=== PATIENT | male | born 1950 | race Caucasian/White ===

== ENCOUNTER → 2017-05-20 | Outpatient (CLI) | payer OTHER, BC ==
[~2017-05-20] MED LIST: OPTIRAY 320 IV PRN; PATIENT'S ALLERGY INFO NEEDS ENTERED SCH
--- NOTE | 2017-05-20 10:00 | DIAGNOSTIC IMAGING REPORT ---
CT SCAN OF THE BRAIN WITHOUT IV CONTRAST CLINICAL HISTORY: Memory loss. Headache. COMPARISON STUDY: No priors. TECHNIQUE: Axial CT scan of the brain is performed from the vertex to the skull base before and following the IV administration of 94 cc of Optiray 320. IV contrast was administered without complication. CT DOSE: 1577.26 mGycm FINDINGS: Brain parenchyma: There are age-related involutional changes noting mild subcortical and periventricular microangiopathic change. There is no hemorrhage, mass effect, or evidence of acute territorial ischemia by CT criteria. No enhancing mass lesion is seen on the postcontrast images. Carey-white matter is preserved. No extra-axial fluid collection is seen. Ventricles, sulci, cisterns: Prominent secondary to involutional change. Intracranial vasculature: There is atherosclerotic calcification of the cavernous carotid arteries. Calvarium: Unremarkable. Sinuses and mastoids: A 1.1 cm retention cyst is noted in the right maxillary antrum. The remaining visualized paranasal sinuses are clear. The mastoid air cells are well pneumatized. Orbits: The bony orbits are grossly intact. IMPRESSION: There is no hemorrhage, enhancing mass, or evidence of acute territorial ischemia by CT criteria. Electronically signed by: Philip Bean M.D. 05/20/2017 9:59 AM Dictated Date/Time: 05/20/2017 9:56 AM
== END | disposition home or self-care (01) ==
LOC: C.CTS 09:35
PROVIDERS: ATTEND Psychiatry & Neurology Neurology
DX: R41.3 Other amnesia (principal); R51 Headache

== ENCOUNTER 2017-09-14 09:16 | Day surgery (SDC) | payer OTHER, BC ==
[2017-08-24 08:34] VITALS: Ht 167.6 cm; Wt 89.9 kg
--- NOTE | 2017-08-24 09:09 | PAT Medication Instructions ---
Service Date Aug 24, 2017. Current Home Medication List Aspirin (Aspirin Ec), 81 MG PO QPM Carvedilol (Coreg), 12.5 MG PO BID Cholecalciferol (Vitamin D3), 1 TAB PO QPM Donepezil Hydrochloride (Aricept), 10 MG PO QAM Eplerenone (Eplerenone), 12.5 MG PO QAM Escitalopram (Lexapro), 10 MG PO QPM Ferrous Sulfate (Iron), 325 MG PO QPM Hydrochlorothiazide (Hctz), 25 MG PO QAM Memantine (Namenda), 10 MG PO BID Multivitamin (Multivitamin), 1 TAB PO QAM Omeprazole (Prilosec), 20 MG PO QPM Ramipril (Ramipril), 1 CAP PO QPM Medication Instructions For Your Scheduled Surgery - Check with surgeon and barrel loader for instructions: Aspirin (Aspirin Ec), 81 MG PO QPM - Hold the following medications 24 hours prior to surgery: Ramipril (Ramipril), 1 CAP PO QPM - Hold the following medications the morning of surgery: Eplerenone (Eplerenone), 12.5 MG PO QAM Hydrochlorothiazide (Hctz), 25 MG PO QAM Multivitamin (Multivitamin), 1 TAB PO QAM - Take the following medications the morning of surgery with a sip of water: Memantine (Namenda), 10 MG PO BID Donepezil Hydrochloride (Aricept), 10 MG PO QAM Carvedilol (Coreg), 12.5 MG PO BID - Take the following medications as scheduled the night before surgery: Omeprazole (Prilosec), 20 MG PO QPM Memantine (Namenda), 10 MG PO BID Escitalopram (Lexapro), 10 MG PO QPM Ferrous Sulfate (Iron), 325 MG PO QPM Cholecalciferol (Vitamin D3), 1 TAB PO QPM Carvedilol (Coreg), 12.5 MG PO BID If you have any questions please call us at [phone] or [phone] or [phone]
--- NOTE | 2017-08-24 09:48 | DIAGNOSTIC IMAGING REPORT ---
TWO VIEW CHEST CLINICAL HISTORY: Preoperative examination. FINDINGS: PA and lateral chest radiographs are obtained. No prior studies are available for comparison at the time of dictation. A single lead cardiac AICD partially obscures the left upper chest. The heart is mildly enlarged and there is atherosclerotic calcification of the thoracic aorta. The pulmonary vasculature is noncongested. Nonspecific interstitial thickening is identified. No airspace consolidation or pleural effusion is seen. There is no pneumothorax. The bony thorax appears intact. IMPRESSION: 1. Cardiomegaly and AICD. There is no radiographic evidence of congestive failure. 2. No airspace consolidation or pleural effusion is identified. Electronically signed by: Philip Bean M.D. 08/24/2017 9:47 AM Dictated Date/Time: 08/24/2017 9:46 AM
[2017-08-24 10:06] LABS: BASO % 0.7 %; BASO ABS # 0.04 K/uL (0-0.2); EOS % 3.3 %; EOS ABS # 0.18 K/uL (0-0.5); HEMATOCRIT 44.9 % (42-52); HEMOGLOBIN 15.8 g/dL (14.0-18.0); IG# 0.01 K/uL (0.00-0.02); LYMPH % 29.3 %; LYMPH ABS # 1.61 K/uL (1.2-3.4); MEAN CORPUSCULAR HEMOGLOBIN 32.4 pg (25-34); MEAN CORPUSCULAR HGB CONC 35.2 g/dl (32-36); MEAN PLATELET VOLUME 9.4 fL (7.4-10.4); MONO ABS # 0.55 K/uL (0.11-0.59); NEUT % 56.5 %; NEUT ABS # 3.11 K/uL (1.4-6.5); PLATELET COUNT 187 K/uL (130-400); RED CELL DISTRIBUTION WIDTH CV 13.6 % (11.5-14.5); RED CELL DISTRIBUTION WIDTH SD 45.7 fL (36.4-46.3)
[2017-08-24 10:24] LABS: PTT PATIENT 27.5 SECONDS (21.0-31.0)
[2017-08-24 11:37] LABS: CALCIUM 9.4 mg/dl (8.5-10.1); CREATININE 1.16 mg/dl (0.60-1.40)
--- NOTE | 2017-09-13 17:16 | HISTORY & PHYSICAL EXAMINATION ---
DATE OF ADMISSION: 09/14/2017 CHIEF COMPLAINT: Medium sized left rotator cuff tear. HISTORY OF PRESENT ILLNESS: Victor Manuel is a pleasant 67-year-old male who has been dealing with chronic left shoulder pain. He has a defibrillator, so went to the [facility] for special MRI. The MRI showed a medium sized rotator cuff tear. After failing extensive conservative treatment including multiple injections, he has elected to proceed with a left arthroscopic rotator cuff repair. PAST MEDICAL HISTORY: Significant for CHF with a defibrillator. MEDICATIONS: Include aspirin 81 mg daily, carvedilol 12.5 mg twice a day, hydrochlorothiazide, ramipril 5 mg daily, omeprazole 20 mg daily, benazepril 10 mg daily, iron 325 mg daily, and vitamin D. PAST SURGICAL HISTORY: Denies. ALLERGIES: STATINS. SOCIAL HISTORY: He has about 1 drink per day. Denies any tobacco or drug use. He likes to remain active. REVIEW OF SYSTEMS: He complains mostly of left shoulder pain. All other pertinent review of systems negative. PHYSICAL EXAMINATION: GENERAL: He is awake, alert and orient x3. He is in no apparent distress. He is very pleasant. HEENT: Pupils equal, round, and reactive light. Extraocular movements were intact. Oral mucosa is pink and moist. HEART: Regular rate per radial pulse. LUNGS: Kristen symmetrically bilaterally with no audible breath sounds. ABDOMEN: Soft, nontender, and nondistended. MUSCULOSKELETAL: On physical examination of the left shoulder, he has full active range of motion. He has 4/5 motion with full can test and external rotation. Negative bear hug and belly press test. He has tenderness to palpation over subacromial space and mild biceps mary tenderness. No AC joint pain. IMAGING: MRI of the shoulder shows a full thickness medium sized rotator cuff tear of the supraspinatus. IMPRESSION: Medium sized left rotator cuff tear. PLAN: We will proceed with an arthroscopic decompression and arthroscopic rotator cuff repair. Postoperatively, he will be placed in a sling and placed on oral pain medications and discharged to home.
[~2017-09-14] VITALS: Ht 167.6 cm; Wt 89.9 kg
[~2017-09-14 09:16] MED LIST changes: +ACETAMINOPHEN 500 MG TAB PO SCH; +ASPI81TA28 PO; +ATROPINE SULFATE 0.1 MG/ML 5ML SYR IV PRN; +CARV12.52 PO; +CEFAZOLIN 2000MG IV PUSH 15 ML IV SCH; +CHOL1000 PO; +DONE10TA12 PO; +EPLE25TA3 PO; +ESCI10TA17 PO; +EpHEDrine SULFATE 50MG/5ML SYR ONE; +EpHEDrine SULFATE INJ 50 MG/ML AMP IV PRN; +FAMOTIDINE 20 MG TAB PO SCH; +FENTANYL CITRATE INJ 50 MCG/1 ML 2 ML VIAL IV PRN; +FENTANYL CITRATE INJ 50 MCG/1 ML 2 ML VIAL ONE; +FERR1TAB23 PO; +GABAPENTIN 300 MG CAP PO SCH; +HYDR25TA4 PO; +LACTATED RINGER'S 1000ML 1,000 ML IV SCH; +LACTATED RINGER'S 1000ML IV SCH; +LIDOCAINE HCL 2% 2 ML VIAL (20MG/ML) ONE; +MIDAZOLAM HCL 1 MG/ML 2ML VIAL ONE; +MULT-506 PO; +NMN10 PO; +ONDANSETRON INJ 2 MG/ML 2 ML VIAL IV PRN; +ONDANSETRON INJ 2 MG/ML 2 ML VIAL ONE; -OPTIRAY 320 IV PRN; -PATIENT'S ALLERGY INFO NEEDS ENTERED SCH; +PHENYLEPHRINE 100MCG/ML 5ML SYR ONE; +PRLSR20 PO; +PROPOFOL IV EMULSION 10 MG/ML 20 ML VIAL IV ONE; +RAMI5CAP PO; +ROPIVACAINE 0.5% 5 MG/ML 30 ML VIAL ONE
[2017-09-14 09:55] VITALS: BP 154/91; PULSE 61; TEMP 36.5; O2SAT 97
[2017-09-14] MEDS ORDERED: EpINEphrine HCL INJ 1 MG/ML 1ML SYRINGE ONE ×2 (11:42)
[2017-09-14] MEDS ORDERED: BUPIVACAINE/EPINEPHRINE 0.5% MPF 1:200,000 30 ML VIAL ONE (11:42)
--- NOTE | 2017-09-14 11:54 | History & Physical Bridge Note ---
H&P Re-Evaluation Bridge Note: I have examined the patient, reviewed the History & Physical and in the interval since the performance of the History & Physical I have noted the following changes of clinical significance: No changes noted
--- NOTE | 2017-09-14 14:12 | [facility] Post Operative Brief Note ---
Immediate Operative Summary Operative Date Sep 14, 2017. Pre-Operative Diagnosis Medium sized left rotator cuff tear Post-Operative Diagnosis SAME Procedure(s) Performed Left shoulder arthroscopy with rotator cuff repair and bicep tenodesis Surgeon Dr. Welch Driver Retraining Instructor Surgeon(s) Jose Antonio Pereira Pa-c Estimated Blood Loss 10ML Findings Consistent with Post-Op Diagnosis Specimens NONE Drains None Anesthesia Type General Regional Complication(s) none Disposition Disposition: Recovery Room / PACU
[2017-09-14] MEDS ORDERED: OXYC-57 PO (14:30)
[2017-09-14] MEDS ORDERED: KETO10TA PO (14:30)
--- NOTE | 2017-09-14 14:32 | Discharge Instructions ---
Discharge Instructions Date of Service Sep 14, 2017. Admission Reason for Admission: Left Shoulder Rotator Cuff Tear Discharge Discharge Diagnosis / Problem: SAME ABOVE Discharge Goals Goal(s): Decrease discomfort, Improve function Activity Recommendations Activity Limitations: as noted below Lifting Limitations: until after follow-up appointment Exercise/Sports Limitations: until after follow-up appointment Shower/Bathe: tomorrow . Instructions / Follow-Up Instructions / Follow-Up MEDICATIONS: * Resume previous medications unless instructed otherwise by your surgeon. * Always take pain medication on a full stomach or with food to avoid upset stomach. * Do not drink alcohol or drive while taking narcotics. * Ibuprofen or Tylenol may be taken if narcotic not needed. SPECIAL CARE INSTRUCTIONS: __ None _X_ Keep extremity elevated and iced x 48 hours; apply ice 20-30 minutes 8-10 times/day. May remove at night. __ Sling __24 hrs/day __ Remove at night _X_ Shoulder Immobilizer (MAY REMOVE AFTER 48 HOURS ONLY TO SHOWER AND FOR THERAPY) _X_ 24 hrs/day __ Remove at night _X_ Dressing __ Maintain until seen in office, may shower with plastic over site _X_ Remove dressings in 24-48 hours and then may shower _X_ Cover incisions with band-aids after showering _X_ Do not remove steri-strips Call physician if chills or temperature rises above 102 degrees or pain unrelieved by prescribed pain medications at . . Current Hospital Diet Patient's current hospital diet: Discharge Diet Recommended Diet: Regular Diet Procedures Procedures Performed: Left shoulder arthroscopy with rotator cuff repair and bicep tenodesis Pending Studies Studies pending at discharge: no Work Instructions Return To Work: after follow-up Lifting Limitations: NO LIFTING WITH LEFT ARM Medical Emergencies . Who to Call and When: Medical Emergencies: If at any time you feel your situation is an emergency, please call 911 immediately. . Non-Emergent Contact Non-Emergency issues call your: Primary Care Provider Call Non-Emergent contact if: you have a fever, temperature is above 101.5 . "Provider Documentation" section prepared by Eric Pereira. .
--- NOTE | 2017-09-14 14:35 | OPERATIVE REPORT ---
DATE OF OPERATION: 09/14/2017 PREOPERATIVE DIAGNOSIS: Medium sized left rotator cuff tear. POSTOPERATIVE DIAGNOSIS: Same. PROCEDURES: Left shoulder diagnostic arthroscopy with extensive debridement, acromioplasty, medium sized rotator cuff repair and open subpectoralis biceps tenodesis. SURGEON: Dr. Hank Odell. PROFESSOR OF MEDICINE: Jose Antonio Pereira PA-C, whose assistance was necessary for retraction, helping with arthroscopic instrumentation and closure. ANESTHESIA: General with a left interscalene nerve block. COMPLICATIONS: None. CONDITION: Stable to PACU. INDICATIONS: Victor Manuel is a pleasant 67-year-old male who presented to my office with a several year history of left shoulder pain. He does have a recent defibrillator placed. He had an MRI done at [place] because of a defibrillator and the MRI showed a medium size rotator cuff tear. After failing extensive conservative treatment, he elected to undergo arthroscopy. DESCRIPTION OF PROCEDURE: On 09/14/2017, he arrived at [facility] for the above procedure. He was seen in the preoperative holding and the operative extremity was identified and signed. He was given a preoperative antibiotic and a left interscalene nerve block. He was taken back to the operating room, laid on the table in the supine position and put under general anesthesia. He was then put into the beach chair position. The left shoulder was prepped and draped in sterile fashion. Time-out was done and the patient's operative extremity was properly identified. A scope was introduced into the posterior portal. Diagnostic arthroscopy showed no cartilage damage to the humeral head or the glenoid. There was some fraying of the anterior superior labrum. The biceps tendon was very frayed. There was a tear of the supraspinatus. The infraspinatus, teres minor and subscapularis were checked and intact. An anterior portal was not made because of the proximity of the defibrillator. The scope was then put in the subacromial space. A lateral portal was made. A shaver was used to do a complete subacromial and subdeltoid bursectomy. An ablator was used to tease the coracoacromial ligament off the undersurface of the acromion and a 5-0 joseph was used to complete an acromioplasty of a Bigliani type 3 acromion. A shaver was used to remove any excess debris and attention was turned to the rotator cuff. An additional anterolateral portal was made and Antoinette cannulas were placed in each of the lateral portals. It was a crescent shaped medium size rotator cuff tear. The greater tuberosity was prepared with a ring curette and a microfracture. A shaver was then used to do an intraarticular debridement. I was able to debride the labrum. I tenotomized the biceps tendon for later tenodesis and debrided the biceps stump back to stable margins. The rotator cuff was then fixed with an Arthrex SpeedBridge configuration using 4.75-mm BioComposite SwiveLock suture anchors and FiberTapes. This gave a nice knotless SpeedBridge repair. Multiple pictures were taken. The shoulder was brought through a full range of motion. The repair looked good. Arthroscopic instruments were removed from the shoulder. Attention was turned to an open biceps tenodesis. A small incision was made over the inferior border of the pectoralis major. Dissection was taken down through the fascia and the long head of the biceps tendon was delivered out the wound. The tendon was then whipstitched at the anticipated level of tenodesis. A 7.5-mm hole was drilled in the bicipital groove and the biceps tendon was tenodesed within 7 x 10 mm biointerference screw. This gave good fixation. The wound was then irrigated, closed with 3-0 Vicryl and running 3-0 Monocryl. Steri-strips were placed. Portal sites were closed with 3-0 nylon. He was then placed in a soft dressing and an abduction arm sling. He was then extubated, transferred [facility] and taken to the postanesthesia care unit in stable condition. He tolerated the procedure well. I attest to the content of the Intraoperative Record and any orders documented therein. Any exception s are noted below.
[2017-09-14] MEDS ORDERED: SODIUM CHLORIDE 0.9% 1000ML 1,000 ML IV SCH (14:43)
[2017-09-14] MEDS ORDERED: OXYCODONE/ACETAMINOPHEN 5-325 TAB PO PRN ×2 (14:45)
[2017-09-14] MEDS ORDERED: ONDANSETRON INJ 2 MG/ML 2 ML VIAL IV PRN (14:45)
--- NOTE | 2017-09-14 14:59 | Anesthesiology Progress Note ---
Anesthesia Post Op Note Date & Time Sep 14, 2017 at 14:59 Vital Signs Pain Intensity: 0 Vital Signs Past 12 Hours Date Time Temp Pulse Resp B/P (MAP) Pulse Ox O2 Delivery O2 Flow Rate FiO2 09/14/17 14:55 93 14 143/90 97 Room Air 09/14/17 14:45 89 16 154/92 99 Oxymask 10 09/14/17 14:35 92 22 154/99 100 Oxymask 10 09/14/17 14:26 36.2 64 17 137/83 98 Oxymask 10 09/14/17 09:55 36.5 61 18 154/91 (112) 97 Room Air Notes Mental Status: alert / awake / arousable, participated in evaluation Pt Amnestic to Procedure: Yes Nausea / Vomiting: adequately controlled Pain: adequately controlled Airway Patency, RR, SpO2: stable & adequate BP & HR: stable & adequate Hydration State: stable & adequate Anesthetic Complications: no major complications apparent
[2017-09-14 15:10] VITALS: BP 154/90; PULSE 96; TEMP 36.4; O2SAT 95
[2017-09-14 15:40] VITALS: BP 154/77; PULSE 93; O2SAT 97
[2017-09-14 16:20] VITALS: BP 153/86; PULSE 83; TEMP 36.5; O2SAT 97
== END 2017-09-14 16:45 | disposition home or self-care (01) ==
LOC: C.ACU 09:16
PROVIDERS: ATTEND Orthopaedic Surgery
DX: M75.102 Unspecified rotator cuff tear or rupture of left shoulder, not specified as traumatic (principal); I11.0 Hypertensive heart disease with heart failure; I50.9 Heart failure, unspecified; E66.9 Obesity, unspecified; Z88.8 Allergy status to other drugs, medicaments and biological substances; Z95.810 Presence of automatic (implantable) cardiac defibrillator; Z79.82 Long term (current) use of aspirin